=== PATIENT | female | born 1990 | race Caucasian/White ===

== ENCOUNTER 2019-02-14 17:13 | Outpatient (CLI) | payer MEDICAID | END 2019-02-14 18:10 | disposition home or self-care (01) | LOC: OBT 17:13 → L-D 17:15 → OBT 18:10 | DX: O99.513 Diseases of the respiratory system complicating pregnancy, third trimester (principal); J02.9 Acute pharyngitis, unspecified; Z3A.39 39 weeks gestation of pregnancy | CPT/HCPCS: Z7500 ==